=== PATIENT | female | born 1965 | race Two or more races ===

== ENCOUNTER 2019-05-27 22:10 | Emergency (ER) | payer SELFPAY ==
[~2019-05-27] VITALS: Ht 152.4 cm; Wt 75.0 kg
[2019-05-27 22:21] VITALS: BP 159/86
== END 2019-05-28 08:30 | disposition left against medical advice (07) ==
LOC: ER 22:30
DX: R07.9 Chest pain, unspecified (principal); Z53.21 Procedure and treatment not carried out due to patient leaving prior to being seen by health care provider